=== PATIENT | female | born 1985 | race American Indian/Alaskan Native ===

== ENCOUNTER 2017-05-29 20:01 | Emergency (ER) | payer OTHER ==
[2017-05-29 21:13] VITALS: BP 138/85
== END 2017-05-30 02:30 | disposition left against medical advice (07) ==
LOC: ED 20:01
DX: M54.5 Low back pain (principal); J02.9 Acute pharyngitis, unspecified; Z53.21 Procedure and treatment not carried out due to patient leaving prior to being seen by health care provider